=== PATIENT | female | born 1960 | race Caucasian/White ===

== ENCOUNTER → 2017-01-08 | Outpatient (CLI) | payer BC ==
[2015-04-24 03:15] VITALS: BP 156/94
[~2017-01-08] MED LIST: SERT100T PO; TRAZ50TA15 PO
--- NOTE | 2017-01-08 16:30 | CARD ---
APPROVED REPORT EXAM: Two-dimensional and M-mode echocardiogram with Doppler and color Doppler. Other Information Quality : GoodHR: 74bpm Rhythm : NSR INDICATION Cardiomyopathy RISK FACTORS Smoking Previous tobacco use 2D DIMENSIONS RVDd2.3 (2.9-3.5cm)Left Atrium(2D)2.7 (1.6-4.0cm) IVSd1.1 (0.7-1.1cm)Aortic Root(2D)2.8 (2.0-3.7cm) LVDd5.3 (3.9-5.9cm)LVOT Diameter2.4 (1.8-2.4cm) PWd1.2 (0.7-1.1cm)LVDs4.8 (2.5-4.0cm) FS (%) 9.9 %SV29.0 ml Aortic Valve AoV Peak Rolando.106.9cm/sAoV VTI24.7cm AO Peak GR.4.6mmHgLVOT Peak Rolando.82.7cm/s LVOT VTI 16.97cmAO Mean GR.3mmHg NAA (VMAX)3.04mj1BTH (VTI)3.11cm2 Mitral Valve MV E Phxhuahn66.9cm/sMV E Peak Gr.5mmHg MV DECEL [id number] A Gkhwonhz281.3cm/s MV E Mean Gr.2mmHgE/A Ratio0.5 MV A [id number] Pulmonary Valve PV Peak Rnnpjwfn249.4cm/sPV Peak Grad.7mmHg Pulmonary Vein S1 Botfmbtw09.1cm/sD2 Pwhqdgfp41.0cm/s LEFT VENTRICLE The Left Ventricle is borderline dilated. There is mild concentric left ventricular hypertrophy. Left ventricle systolic function is moderately impaired. The Ejection Fraction is 30-35%. There is modera te global hypokinesis of the left ventricle. Transmitral Doppler flow pattern is Grade I-abnormal rel axation pattern. No left ventricle thrombus noted on this study. RIGHT VENTRICLE The right ventricle is normal size. There is normal right ventricular wall thickness. The right ventr icular systolic function is normal. ATRIA The left atrium size is normal. The right atrium size is normal. The interatrial septum is intact wit h no evidence for an atrial septal defect or patent foramen ovale as noted on 2-D or Doppler imaging. AORTIC VALVE The aortic valve is mildly sclerotic. The aortic valve is trileaflet. Doppler and Color Flow revealed no significant aortic regurgitation. There is no significant aortic valvular stenosis. MITRAL VALVE The mitral valve leaflets are mildly thickened. There is no evidence of mitral valve prolapse. There is no mitral valve stenosis. Doppler and Color Flow revealed trace to mild mitral regurgitation. TRICUSPID VALVE Doppler and Color Flow revealed trace tricuspid valve regurgitation. PULMONIC VALVE The pulmonic valve is not well visualized but appears to open well. Doppler and Color Flow revealed n o pulmonic valvular regurgitation. There is no pulmonic valvular stenosis by spectral Doppler. GREAT VESSELS The aortic root is normal in size. The ascending aorta is normal in size. The pulmonary artery is nor mal. The IVC is normal in size and collapses >50% with inspiration. PERICARDIAL EFFUSION There is no evidence of significant pericardial effusion. Critical Notification Critical Value: No <Conclusion> The Left Ventricle is borderline dilated. Left ventricle systolic function is moderately impaired. The Ejection Fraction is 30-35%. There is moderate global hypokinesis of the left ventricle. There is mild concentric left ventricular hypertrophy. There is no significant aortic valvular stenosis. Doppler and Color Flow revealed no significant aortic regurgitation. Doppler and Color Flow revealed trace to mild mitral regurgitation. Doppler and Color Flow revealed trace tricuspid valve regurgitation.
== END | disposition home or self-care (01) ==
LOC: ECHO 12:11
PROVIDERS: ATTEND Internal Medicine Cardiovascular Disease
DX: I51.7 Cardiomegaly (principal); I42.9 Cardiomyopathy, unspecified; Z72.0 Tobacco use
CPT/HCPCS: 93306

== ENCOUNTER → 2017-04-23 | Outpatient (CLI) | payer BC ==
[2015-04-24 03:15] VITALS: BP 156/94
--- NOTE | 2017-04-23 15:38 | CARD ---
APPROVED REPORT EXAM: Two-dimensional and M-mode echocardiogram with Doppler and color Doppler. Other Information Quality : Good INDICATION Cardiomyopathy 2D DIMENSIONS Left Atrium(2D)3.3 (1.6-4.0cm)IVSd1.3 (0.7-1.1cm) Aortic Root(2D)3.0 (2.0-3.7cm)LVDd6.1 (3.9-5.9cm) LVOT Diameter2.2 (1.8-2.4cm)PWd1.2 (0.7-1.1cm) LVDs5.1 (2.5-4.0cm)FS (%) 17.0 % SV66.4 mlLVEF(%)34.9 (>50%) Aortic Valve AoV Peak Rolando.128.0cm/sAoV VTI23.8cm AO Peak GR.6.6mmHgLVOT Peak Rolando.72.5cm/s LVOT VTI 13.28cmAO Mean GR.4mmHg NAA (VMAX)2.70rr0WMI (VTI)2.16cm2 Mitral Valve MV E Ixrrmgvy656.7cm/sMV DECEL [id number] MV A Uevzssmn04.8cm/sE/A Ratio2.2 Tricuspid Valve TR P. Kufcztme591gg/sRAP [id number] TR Peak Gr.92nlNsAPGS12fwIp LEFT VENTRICLE The Left Ventricle is moderately dilated. There is mild concentric left ventricular hypertrophy. Left ventricle systolic function is mildly impaired. The Ejection Fraction is 45% There is global hypokin esis of the left ventricle. The basal to mid inferolateral wall and infero-septum is akinetic. Tissue Doppler imaging reveals abnormal left ventricular diastolic dysfunction. RIGHT VENTRICLE The right ventricle is normal size. The right ventricular systolic function is normal. ATRIA The left atrium size is normal. The right atrium size is normal. The interatrial septum is intact wit h no evidence for an atrial septal defect or patent foramen ovale as noted on 2-D or Doppler imaging. AORTIC VALVE The aortic valve is calcified but opens well. Doppler and Color Flow revealed no significant aortic r egurgitation. There is no significant aortic valvular stenosis. MITRAL VALVE The mitral valve is mildly thickened but opens well. There is no evidence of mitral valve prolapse. T here is no mitral valve stenosis. Doppler and Color Flow revealed no mitral valve regurgitation noted . TRICUSPID VALVE The tricuspid valve is normal in structure and function. Doppler and Color Flow revealed trace tricus pid regurgitation. There is no pulmonary hypertension. The PA pressure was estimated at 20 mmHg. Ther e is no tricuspid valve prolapse or vegetation. There is no tricuspid valve stenosis. PULMONIC VALVE Doppler and Color Flow revealed no pulmonic valvular regurgitation. There is no pulmonic valvular elvie nosis. GREAT VESSELS The aortic root is normal in size. The ascending aorta is normal in size. The IVC is normal in size a nd collapses >50% with inspiration. PERICARDIAL EFFUSION There is no pleural effusion. There is no evidence of significant pericardial effusion. Critical Notification Critical Value: No <Conclusion> Left ventricle systolic function is mildly impaired. The Ejection Fraction is 45% There is global hypokinesis of the left ventricle. The basal to mid inferolateral wall and infero-sep kenzie is akinetic.
== END | disposition home or self-care (01) ==
LOC: ECHO 12:09
PROVIDERS: ATTEND Internal Medicine Cardiovascular Disease
DX: I42.9 Cardiomyopathy, unspecified (principal); I07.1 Rheumatic tricuspid insufficiency; Z87.891 Personal history of nicotine dependence
CPT/HCPCS: 93306

== ENCOUNTER → 2018-07-23 | Outpatient (CLI) | payer BC ==
[2015-04-24 03:15] VITALS: BP 156/94
[~2018-07-23] MED LIST changes: +TRAZ-120 PO; -TRAZ50TA15 PO
[2018-07-23 15:46] LABS: CALCIUM 9.1 mg/dL (8.5-10.1); CREATININE 1.3 mg/dL (0.6-1.0); GFR 41.8; POTASSIUM 4.1 mmol/L (3.5-5.1)
== END | disposition home or self-care (01) ==
LOC: LAB 15:02
PROVIDERS: ATTEND Physician Assistant Medical
DX: I11.0 Hypertensive heart disease with heart failure (principal); I50.22 Chronic systolic (congestive) heart failure; I44.7 Left bundle-branch block, unspecified
CPT/HCPCS: 36415; 80048

== ENCOUNTER → 2019-10-19 | Outpatient (CLI) | payer BC ==
[2015-04-24 03:15] VITALS: BP 156/94
[2019-10-19 17:55] LABS: CALCIUM 9.1 mg/dL (8.5-10.1); CREATININE 1.2 mg/dL (0.6-1.0); GFR 45.7; POTASSIUM 4.3 mmol/L (3.5-5.1)
== END ==
LOC: LAB 15:47
PROVIDERS: ATTEND Internal Medicine Advanced Heart Failure and Transplant Cardiology
DX: I50.22 Chronic systolic (congestive) heart failure (principal)
CPT/HCPCS: 36415; 80048

== ENCOUNTER → 2019-11-27 | Outpatient (CLI) | payer BC ==
[2015-04-24 03:15] VITALS: BP 156/94
[2019-11-27 11:03] LABS: CALCIUM 9.1 mg/dL (8.5-10.1); CREATININE 1.5 mg/dL (0.6-1.0); GFR 35.3; POTASSIUM 4.5 mmol/L (3.5-5.1)
== END | disposition home or self-care (01) ==
LOC: LAB 09:47
PROVIDERS: ATTEND Internal Medicine Advanced Heart Failure and Transplant Cardiology
DX: I50.22 Chronic systolic (congestive) heart failure (principal)
CPT/HCPCS: 36415; 80048

== ENCOUNTER → 2019-12-29 | Outpatient (CLI) | payer BC ==
[2015-04-24 03:15] VITALS: BP 156/94
[2019-12-29 12:12] LABS: CALCIUM 9.1 mg/dL (8.5-10.1); CREATININE 1.5 mg/dL (0.6-1.0); GFR 35.3; POTASSIUM 4.1 mmol/L (3.5-5.1)
== END | disposition home or self-care (01) ==
LOC: LAB 09:52
PROVIDERS: ATTEND Internal Medicine Advanced Heart Failure and Transplant Cardiology
DX: I50.22 Chronic systolic (congestive) heart failure (principal)
CPT/HCPCS: 36415; 80048

== ENCOUNTER → 2020-02-02 | Outpatient (CLI) | payer BC ==
[2015-04-24 03:15] VITALS: BP 156/94
[2020-02-02 12:53] LABS: BASO # 0.1 x10^3/uL (0.0-0.2); BASO % 1 % (0-3); EOS # 0.3 x10^3/uL (0.0-0.7); EOS % 3 % (0-3); HEMATOCRIT 42.4 % (36.0-47.0); HEMOGLOBIN 14.4 g/dL (12.0-15.5); LYMPH # 3.4 x10^3/uL (1.0-4.8); LYMPH % 39 % (24-48); MEAN CORPUSCULAR HEMOGLOBIN 31 pg (25-35); MEAN CORPUSCULAR HGB CONC 34 g/dL (31-37); MEAN CORPUSCULAR VOLUME 92 fL (79-100); MONO # 1.1 x10^3/uL (0.0-1.1); MONO % 13 % (0-9); NEUT # 3.8 x10^3uL (1.8-7.7); NEUT % 44 % (31-73); PLATELET COUNT 204 x10^3/uL (140-400); RED BLOOD COUNT 4.64 x10^6/uL (3.50-5.40); RED CELL DISTRIBUTION WIDTH 13.9 % (11.5-14.5); WHITE BLOOD COUNT 8.6 x10^3/uL (4.0-11.0)
[2020-02-02 13:03] LABS: ALBUMIN/GLOBULIN RATIO 0.9 (1.0-1.7); CALCIUM 8.8 mg/dL (8.5-10.1); CREATININE 1.4 mg/dL (0.6-1.0); GFR 38.2; POTASSIUM 4.4 mmol/L (3.5-5.1); TOTAL BILIRUBIN 0.3 mg/dL (0.2-1.0); TOTAL PROTEIN 8.3 g/dL (6.4-8.2)
== END | disposition home or self-care (01) ==
LOC: LAB 11:13
PROVIDERS: ATTEND Internal Medicine Advanced Heart Failure and Transplant Cardiology
DX: I11.0 Hypertensive heart disease with heart failure (principal); I50.22 Chronic systolic (congestive) heart failure; I44.7 Left bundle-branch block, unspecified; I42.8 Other cardiomyopathies
CPT/HCPCS: 36415; 80053; 85025

== ENCOUNTER → 2020-10-28 | Outpatient (CLI) | payer BC ==
[2015-04-24 03:15] VITALS: BP 156/94
[2020-10-28 10:45] LABS: CALCIUM 9.4 mg/dL (8.5-10.1); CREATININE 1.5 mg/dL (0.6-1.0); GFR 35.2
== END ==
LOC: LAB 09:45
PROVIDERS: ATTEND Internal Medicine Advanced Heart Failure and Transplant Cardiology
DX: I50.22 Chronic systolic (congestive) heart failure (principal); I10 Essential (primary) hypertension
CPT/HCPCS: 36415; 80048; 83880

== ENCOUNTER 2021-01-15 14:10 | Inpatient (IN) | payer BC ==
[~2021-01-15] VITALS: Ht 167.6 cm; Wt 79.0 kg
--- NOTE | 2021-01-15 14:44 | PHYS DOC ---
Past History Past Medical History: Depression (DARBY MCDONALD APRN) Past Surgical History: Cholecystectomy, Pacemaker Additional Past Surgical Histo: carpal tunnel (DARBY MCDONALD APRN) Smoking: Non-smoker Alcohol Use: None Drug Use: None (DARBY MCDONALD APRN) General Adult EDM: Chief Complaint: MULTIPLE COMPLAINTS HPI: HPI: Patient is a 60-year-old female being seen in the ER for multiple complaints such as insomnia, fever/chills, shortness of breath, nonproductive cough, nausea, decreased appetite, loss of taste, diarrhea x1 week. Patient denies any sick exposures. She is not vaccinated for COVID-19. Patient has a history of congestive heart failure and hypertension. Patient is slightly tachycardic with a heart rate of 102. She is afebrile in the ER. (DARBY MCDONALD APRN) Review of Systems: Review of Systems: 14 body systems of the review of systems have been reviewed. See HPI for pertinent positive and negative responses, otherwise all other systems are negative, nonpertinent or noncontributory (DARBY MCDONALD APRN) Allergies: Allergies: Allergies Coded Allergies Type Severity Reaction Last Updated Verified No Known Drug Allergies 01/26/14 No (DARBY MCDONALD APRN) Physical Exam: PE: Constitutional: Well developed, well nourished, no acute distress, non-toxic appearance. [] HENT: Normocephalic, atraumatic, bilateral external ears normal, oropharynx dry, no oral exudates, nose normal. [] Eyes: PERRL, EOMI, conjunctiva normal, no discharge. [] Neck: Normal range of motion, no stridor Cardiovascular:Heart rate regular rhythm, no murmur [] Lungs & Thorax: Bilateral breath sounds clear to auscultation [] Abdomen: Bowel sounds normal, soft, no tenderness, no masses, no pulsatile mason s. [] Skin: Warm, dry, no erythema, no rash. [] Back: Normal range of motion Extremities: No tenderness, no cyanosis, no clubbing, ROM intact, no edema. [] Neurologic: Alert and oriented X 3, normal motor function, normal sensory function, no focal deficits noted. [] Psychologic: Affect normal, judgement normal, mood normal. [] (TAMARA,DARBY L CYBER LEGAL ADVISOR) Current Patient Data: Labs: Laboratory Tests Test 01/15/21 14:45 White Blood Count 6.3 x10^3/uL Red Blood Count 4.48 x10^6/uL Hemoglobin 13.9 g/dL Hematocrit 41.3 % Mean Corpuscular Volume 92 fL Mean Corpuscular Hemoglobin 31 pg Mean Corpuscular Hemoglobin Concent 34 g/dL Red Cell Distribution Width 13.5 % Platelet Count 144 x10^3/uL Neutrophils (%) (Auto) 75 % Lymphocytes (%) (Auto) 15 % Monocytes (%) (Auto) 10 % Eosinophils (%) (Auto) 0 % Basophils (%) (Auto) 0 % Neutrophils # (Auto) 4.7 x10^3uL Lymphocytes # (Auto) 1.0 x10^3/uL Monocytes # (Auto) 0.7 x10^3/uL Eosinophils # (Auto) 0.0 x10^3/uL Basophils # (Auto) 0.0 x10^3/uL Sodium Level 132 mmol/L Potassium Level 4.0 mmol/L Chloride Level 95 mmol/L Carbon Dioxide Level 25 mmol/L Anion Gap 12 Blood Urea Nitrogen 49 mg/dL Creatinine 1.8 mg/dL Estimated GFR (Cockcroft-Gault) 28.5 BUN/Creatinine Ratio 27 Glucose Level 128 mg/dL Calcium Level 7.7 mg/dL Total Bilirubin 0.5 mg/dL Aspartate Amino Transf (AST/SGOT) 48 U/L Alanine Aminotransferase (ALT/SGPT) 27 U/L Alkaline Phosphatase 53 U/L Troponin I Quantitative 0.272 ng/mL Total Protein 7.1 g/dL Albumin 3.3 g/dL Albumin/Globulin Ratio 0.9 SARS-CoV-2 Antigen (Rapid) Positive Current Medications Medications (Trade) Dose Ordered Sig/Mac Route PRN Reason Start Time Stop Time Status Last Admin Dose Admin Ceftriaxone Sodium 1 gm/ Sodium Chloride 50 ml @ 100 mls/hr 1X ONCE IV 01/15/21 16:00 01/15/21 16:29 UNV Azithromycin 500 mg/Sodium Chloride 250 ml @ 250 mls/hr 1X ONCE IV 01/15/21 16:00 01/15/21 16:59 UNV Dexamethasone Sodium Phosphate (Decadron) 10 mg 1X ONCE IVP 01/15/21 16:00 01/15/21 16:01 UNV Vital Signs: Vital Signs Date Time Temp Pulse Resp B/P (MAP) Pulse Ox O2 Delivery O2 Flow Rate FiO2 01/15/21 14:15 98.8 103 22 108/62 97 Room Air (DARBY MCDONALD APRN) EKG: EKG: KG EKG performed at 1544 by ER staff shows sinus rhythm, no STEMI read by Dr. Nolan at 1550. [] (DARBY MCDONALD APRN) Radiology/Procedures: Radiology/Procedures: PROCEDURE: PORTABLE CHEST 1V AP chest. HISTORY: Cough, short of air AP view was taken of the chest. The heart is enlarged. There is a left pacemaker with 3 pacing leads. There is haziness in the lung mathews from infiltrates or pulmonary edema. There is no definite effusion. IMPRESSION: 1. Cardiomegaly. 2. Pacemaker on the left. 3. Hazy infiltrates or pulmonary edema. Electronically signed by: Rinku Feng MD (01/15/2021 3:10 PM) [id number] DICTATED AND SIGNED BY: RINKU FENG MD DATE: 01/15/21 1509 CC: DARBY MCDONALD APRN; NILSA BUCHANAN ~MTH0 0 [] (DARBY MCDONALD APRN) Heart Score: C/O Chest Pain: No Risk Factors: Risk Factors: DM, Current or recent (<one month) smoker, HTN, HLP, family history of CAD, obesity. Risk Scores: Score 0 - 3: 2.5% MACE over next 6 weeks - Discharge Home Score 4 - 6: 20.3% MACE over next 6 weeks - Admit for Clinical Observation Score 7 - 10: 72.7% MACE over next 6 weeks - Early Invasive Strategies (DARBY MCDONALD APRN) Course & Med Decision Making: Course & Med Decision Making Pertinent Labs and Imaging studies reviewed. (See chart for details) Patient is a 60-year-old female being seen in the ER for multiple complaints that are consistent with a COVID-19 viral illness such as insomnia, fever/chills, shortness of breath, cough, loss of taste, nausea, diarrhea. Work-up in the ER consisted of urinalysis, blood work, chest x-ray. Patient is tested for COVID-19 in the ER. She will be notified of her results may become available in approximately 2 days. Rapid Covid is positive. Patient has elevated BUN and creatinine. Her troponin was elevated at 0.272. Hyponatremia and hypocalcemia noted. Chest x-ray shows hazy infiltrates. Patient treated with steroid, fluids, antibiotics. I discussed patient's case with Dr. Andino who agreed to admit patient under his services. Serial troponins ordered. Care transferred 1557. Spoke with Dr. Vila with [facility] cardiology group and he advised ordering serial troponins. (DARBY MCDONALD APRN) Course & Med Decision Making I was the Attending physician on the above date of service of this patient. This patient was evaluated, examined, treated, and dispositioned from the emergency department by the mid-level practitioner. I personally saw the patient and repeated certain aspects of history and physical exam. COVID-19 infection in unvaccinated individual with endorgan damage requiring hospital admission Critical Care Time This patient required critical care. Due to the fact that the patient required a significant amount of one on one physician - patient contact time, ordering and review of studies, arranging urgent treatment with development of a management plan, evaluation of patients response to treatment with frequent reassessments, and discussions with other providers this patient required 40 minutes of critical care time. Critical care time was indicated due to the inherent instability and/or potential for instability in this patient. The critical care time that is allocated to this patient is above and beyond any time spent on any other billable procedures performed on this patient. Electronically signed, Lola Shirley DO (LOLA SHIRLEY DO) Edie Disclaimer: Edie Disclaimer: This electronic medical record was generated, in whole or in part, using a voice recognition dictation system. (DARBY MCDONALD APRN) Departure Departure: Impression: Primary Impression: Pneumonia Qualified Codes: J18.9 - Pneumonia, unspecified organism Additional Impressions: COVID-19 NSTEMI (non-ST elevated myocardial infarction) Disposition: ADMITTED INPATIENT Admitting Physician: Bc Ho (DARBY MCDONALD APRN) Condition: STABLE Referrals: NILSA BUCHANAN (PCP) DARBY MCDONALD APRN Jan 15, 2021 14:44 LOLA SHIRLEY DO Jan 17, 2021 12:57
--- NOTE | 2021-01-15 15:12 | RAD ---
AP chest. HISTORY: Cough, short of air AP view was taken of the chest. The heart is enlarged. There is a left pacemaker with 3 pacing leads. There is haziness in the lung mathews from infiltrates or pulmonary edema. There is no definite effus ion. IMPRESSION: 1. Cardiomegaly. 2. Pacemaker on the left. 3. Hazy infiltrates or pulmonary edema. Electronically signed by: Rinku Feng MD (01/15/2021 3:10 PM) [id number]
[2021-01-15 15:22] LABS: CALCIUM 7.7 mg/dL (8.5-10.1); CREATININE 1.8 mg/dL (0.6-1.0); GFR 28.5
[2021-01-15 15:25] LABS: BASO % 0 % (0-3); EOS % 0 % (0-3); HEMATOCRIT 41.3 % (36.0-47.0); HEMOGLOBIN 13.9 g/dL (12.0-15.5); LYMPH % 15 % (24-48); MEAN CORPUSCULAR HEMOGLOBIN 31 pg (25-35); MEAN CORPUSCULAR HGB CONC 34 g/dL (31-37); MEAN CORPUSCULAR VOLUME 92 fL (79-100); MONO # 0.7 x10^3/uL (0.0-1.1); MONO % 10 % (0-9); NEUT # 4.7 x10^3uL (1.8-7.7); NEUT % 75 % (31-73); PLATELET COUNT 144 x10^3/uL (140-400); RED BLOOD COUNT 4.48 x10^6/uL (3.50-5.40); RED CELL DISTRIBUTION WIDTH 13.5 % (11.5-14.5); WHITE BLOOD COUNT 6.3 x10^3/uL (4.0-11.0)
[2021-01-15 15:27] LABS: ALBUMIN 3.3 g/dL (3.4-5.0); ALBUMIN/GLOBULIN RATIO 0.9 (1.0-1.7); TOTAL BILIRUBIN 0.5 mg/dL (0.2-1.0); TOTAL PROTEIN 7.1 g/dL (6.4-8.2)
[2021-01-15] MEDS ORDERED: DEXAMETHASONE SOD PHOS 10 MG/ML VIAL. IVP ONE (16:00)
[2021-01-15] MEDS ORDERED: AZITHROMYCIN 500 MG in IV NORMAL SALINE 250ML 250 ML IV ONE (16:00)
[2021-01-15] MEDS ORDERED: cefTRIAXone SODIUM 1 GM VIAL ONE (16:12)
[2021-01-15] MEDS ORDERED: AZITHROMYCIN 500 MG VIAL. IV ONE (16:12)
[2021-01-15] MEDS ORDERED: IV NORMAL SALINE 250ML 250 ML ONE (16:13)
[2021-01-15] MEDS ORDERED: IV NORMAL SALINE 50ML 50 ML ONE (16:13)
--- NOTE | 2021-01-15 18:00 | EKG ---
[address] [address] Test Date: 2021-01-15 Test Time: 15:44:45 Pat Name: ZEE PITTMAN Department: Room: Gender: F [employer]er: : 1960 Requested By: DARBY MCDONALD Order Number: [id number] Reading MD: Measurements Intervals [place] Rate: 96 P: 46 RI: 144 QRS: 0 QRSD: 156 T: 91 QT: 404 QTc: 518 Interpretive Statements SINUS RHYTHM COMPLEX(ES) WITH ABERRANT INTRAVENTRICULAR CONDUCTION LEFT ATRIAL ABNORMALITY CONSIDER WPW, TYPE B LEFTWARD AXIS T ABNORMALITY IN ANTEROLATERAL LEADS ABNORMAL ECG RI6.02 No previous ECG available for comparison
[2021-01-15] MEDS ORDERED: DULO30CA2 PO (18:18)
[2021-01-15] MEDS ORDERED: FURO-68 PO (18:18)
[2021-01-15] MEDS ORDERED: METO-239 PO (18:18)
[2021-01-15] MEDS ORDERED: IV NORMAL SALINE 500ML 500 ML IV ONE (18:30)
--- NOTE | 2021-01-15 18:51 | HP ---
HISTORY OF PRESENT ILLNESS: The patient is a 60-year-old female patient who came to the Emergency Room with multiple complaints including fever, chills, shortness of breath, nonproductive cough, nausea, anorexia, loss of taste, diarrhea for 1 week. She denies any sick exposure. She is not vaccinated for COVID-19. Has a history of congestive heart failure and hypertension. She was afebrile on presentation. She was extensively investigated and apparently was found to be positive for coronavirus. Her CBC was unremarkable and her chemistry showed has mild hyponatremia, impaired kidney function, creatinine 1.8 and troponin was elevated at 0.272 and was admitted with COVID-19 infection, probably acute kidney injury and elevated troponin. Other medical problems include congestive heart failure and hypertension. She was treated with IV ceftriaxone as well as azithromycin and dexamethasone. We will also trend her cardiac enzymes. I have consulted the muffle operator. We will continue all her home medication. PAST MEDICAL HISTORY: Significant for congestive heart failure, probably chronic diastolic, hypertension. PAST SURGICAL HISTORY: Significant for cholecystectomy and left-sided carpal tunnel release. ALLERGIES: Has no known drug allergies. MEDICATIONS: She is currently on losartan, metoprolol and spironolactone. She is also on sertraline and trazodone for depression. FAMILY HISTORY: She has two sisters, 1 older and 1 younger and 1 brother younger, all healthy. Her father in an accident and was electrocuted when he was 42 years. Her mother is . She does not know her age or the cause of her . SOCIAL HISTORY: She is single, has one daughter. She lost her son who is 42 years old for drug overdose. She quit smoking years ago. Does not drink alcohol or recreational drugs. She retired from working with the [employer] agency. REVIEW OF SYSTEMS: As per history of present illness. PHYSICAL EXAMINATION: GENERAL: When I examined her, she was resting flat in bed, in no apparent respiratory distress. No pallor, jaundice, cyanosis or thyromegaly. No jugular venous distention. No limb edema. VITAL SIGNS: Her heart rate was 103, blood pressure is 108/62, temperature was 98.8, respiratory rate 22, and oxygen saturation was 97% on room air. HEAD, EYES, EARS, NOSE, EYES, EARS, NOSE, AND THROAT: Normocephalic, atraumatic. NECK: Supple. HEART: Showed normal first and second heart sounds, no gallop or murmur. CHEST: Clear to auscultation, no crepitation or rhonchi. ABDOMEN: Distended, soft, nontender. NEUROLOGIC: She was grossly intact. LABORATORY DATA: Lab work drawn this morning showed her serum sodium 132, potassium 4, chloride 95, bicarbonate 25, anion gap of 12, BUN 49, creatinine 1.8. Estimated GFR was 28 mL per minute. Her glucose 128, calcium was 7.7. Total bilirubin, AST, ALT, alkaline phosphatase were normal. Total protein 7.1, albumin was 3.3. First set of troponin was 0.272. Her white cell count was 6300, hemoglobin 14, hematocrit 41, MCV 92 and platelet count of 144,000 with normal manual differential. Her chest x-ray showed the patient has cardiomegaly, pacemaker in the left and has infiltrate or pulmonary edema. ASSESSMENT AND PLAN: In summary, this is a 60-year-old female patient will be admitted with COVID-19 infection. She is known to have congestive heart failure. Troponin is elevated. She has also probably acute on chronic kidney injury as well as hypertension, although her blood pressure is borderline, my plan is to continue with IV antibiotic for possible coronavirus pneumonia versus community-acquired pneumonia. Started with Lovenox. She is on losartan, metoprolol and spironolactone. However, her blood pressure is borderline, probably we will start her on IV fluid as a bolus of normal saline 500 mL and continuously at 100 mL per hour. We will do 2 more sets of cardiac enzymes, check her fasting lipid profile. We will start her also on Lovenox. TAMEKA/ISAAK SCHULTZ: TAMEKA/clara TID: [id number]
[2021-01-15] MEDS ORDERED: IV NORMAL SALINE 1,000ML 1,000 ML IV ONE (19:15)
[2021-01-15 19:24] LABS: BACTERIA,URINE FEW /HPF (0-FEW); BILIRUBIN,URINE NEG (NEG); CLARITY,URINE HAZY; COLOR,URINE AMBER; GLUCOSE,URINE NEG (NEG); NITRITE,URINE NEG (NEG); UROBILINOGEN,URINE 0.2 mg/dL (0.2 mg/dL)
[2021-01-15 19:25] LABS: GRANULAR CASTS,URINE OCC /HPF; HYALINE CASTS, URINE FEW /HPF; SQUAMOUS EPITHELIAL CELL,UR MOD /LPF
[2021-01-15] MEDS: ENOXAPARIN 40 MG/0.4 ML SYRINGE. SQ SCH (19:26)
[2021-01-15 21:26] VITALS: BP 104/66
[2021-01-15 23:20] VITALS: BP 109/56
[2021-01-16] VITALS (36 sets, daily range): BP systolic 71–115; BP diastolic 31–90
[2021-01-16 05:58] LABS: BASO % 0 % (0-3); EOS % 0 % (0-3); HEMATOCRIT 41.6 % (36.0-47.0); HEMOGLOBIN 13.9 g/dL (12.0-15.5); LYMPH # 0.9 x10^3/uL (1.0-4.8); LYMPH % 13 % (24-48); MEAN CORPUSCULAR HEMOGLOBIN 31 pg (25-35); MEAN CORPUSCULAR HGB CONC 33 g/dL (31-37); MEAN CORPUSCULAR VOLUME 94 fL (79-100); MONO # 0.4 x10^3/uL (0.0-1.1); MONO % 7 % (0-9); NEUT # 5.3 x10^3uL (1.8-7.7); NEUT % 80 % (31-73); PLATELET COUNT 134 x10^3/uL (140-400); RED BLOOD COUNT 4.43 x10^6/uL (3.50-5.40); RED CELL DISTRIBUTION WIDTH 13.7 % (11.5-14.5); WHITE BLOOD COUNT 6.6 x10^3/uL (4.0-11.0)
[2021-01-16 06:11] LABS: ALBUMIN 2.8 g/dL (3.4-5.0); ALBUMIN/GLOBULIN RATIO 0.7 (1.0-1.7); CREATININE 1.3 mg/dL (0.6-1.0); GFR 41.5; POTASSIUM 3.7 mmol/L (3.5-5.1); TOTAL BILIRUBIN 0.4 mg/dL (0.2-1.0); TOTAL PROTEIN 7.1 g/dL (6.4-8.2)
[2021-01-16] MEDS: METOPROLOL SUCC 24HR ER 25 MG TAB.ER.24H. PO SCH (08:56)
[2021-01-16] MEDS: FUROSEMIDE 40 MG TABLET PO SCH (08:57)
[2021-01-16] MEDS: DULoxetine HCL 30 MG CAPSULE.DR PO SCH (09:29)
[2021-01-16] MEDS ORDERED: IV NORMAL SALINE 1,000ML 500 ML IV ONE (10:00)
[2021-01-16] MEDS ORDERED: IV NORMAL SALINE 50ML 50 ML ONE (16:20)
[2021-01-16] MEDS ORDERED: cefTRIAXone SODIUM 1 GM VIAL ONE (16:20)
[2021-01-16] MEDS: AZITHROMYCIN 250 MG TABLET. PO SCH (16:28)
--- NOTE | 2021-01-16 16:43 | PDOC2 ---
CONSULT DOS: DATE: 01/16/21 TIME: 16:43 Reason for Consult: Cardiomyopathy Referring Physician: Dr. Ho Chief Complaint Shortness of breath Source: Chart review, Patient Problem List Problems Medical Problems: (1) COVID-19 Status: Acute (2) NSTEMI (non-ST elevated myocardial infarction) Status: Acute (3) Pneumonia Status: Acute History of Present Illness 60-year-old female with history of severe nonischemic cardiomyopathy with LVEF 10 to 15%, usually followed at heart failure clinic at [facility] presented complaining of fever, chills, shortness of breath, cough, loss of taste, nausea and diarrhea since last 1 week. She was diagnosed with Covid infection and admitted for further management. Of note, patient is unvaccinated. She denied any chest pain, palpitations or syncope. Past Medical History Chronic systolic heart failure Severe nonischemic cardiomyopathy Hypertension Past Surgical History Biventricular ICD/FARE REGISTER REPAIRER-D implantation Cholecystectomy Carpal tunnel release surgery Family History Hypertension Social History Patient quit smoking several years ago and denied any alcohol or drug abuse Current Medications Current Medications Ceftriaxone Sodium 1 gm/ Sodium Chloride 50 ml @ 100 mls/hr 1X ONCE IV Last administered on 01/15/21at 16:23; Start 01/15/21 at 16:00; Stop 01/15/21 at 16:29; Status DC Azithromycin 500 mg/Sodium Chloride 250 ml @ 250 mls/hr 1X ONCE IV Last administered on 01/15/21at 16:29; Start 01/15/21 at 16:00; Stop 01/15/21 at 16: 59; Status DC Dexamethasone Sodium Phosphate (Decadron) 10 mg 1X ONCE IVP Last administered on 01/15/21at 16:19; Start 01/15/21 at 16:00; Stop 01/15/21 at 16:22; Status DC Azithromycin (Zithromax) 500 mg STK-MED ONCE IV ; Start 01/15/21 at 16:12; Stop 01/15/21 at 16:12; Status DC Ceftriaxone Sodium (Rocephin) 1 gm STK-MED ONCE .ROUTE ; Start 01/15/21 at 16:12; Stop 01/15/21 at 16:12; Status DC Sodium Chloride 250 ml @ As Directed STK-MED ONCE .ROUTE ; Start 01/15/21 at 16:13; Stop 01/15/21 at 16:13; Status DC Sodium Chloride 50 ml @ As Directed STK-MED ONCE .ROUTE ; Start 01/15/21 at 16:13; Stop 01/15/21 at 16:13; Status DC Ceftriaxone Sodium 1 gm/ Sodium Chloride 50 ml @ 100 mls/hr Q24H IV Last administered on 01/16/21at 16:29; Start 01/16/21 at 16:00 Azithromycin (Zithromax) 250 mg Q24H PO Last administered on 01/16/21at 16:28; Start 01/16/21 at 16:00 Enoxaparin Sodium (Lovenox 40mg Syringe) 40 mg Q24H SQ Last administered on 01/15/21at 19:26; Start 01/15/21 at 19:00 Duloxetine HCl (Cymbalta) 90 mg DAILY PO Last administered on 01/16/21at 09:29; Start 01/16/21 at 09:00 Furosemide (Lasix) 40 mg DAILY PO Last administered on 01/16/21at 08:57; Start 01/16/21 at 09:00 Metoprolol Succinate (Toprol Xl) 25 mg DAILY PO Last administered on 01/16/21at 08:56; Start 01/16/21 at 09:00 Sodium Chloride 500 ml @ 0 mls/hr 1X ONCE IV Last administered on 01/15/21at 18:55; Start 01/15/21 at 18:30; Stop 01/15/21 at 18:31; Status DC Sodium Chloride 1,000 ml @ 1,000 mls/hr 1X ONCE IV Last administered on 01/15/21at 16:00; Start 01/15/21 at 19:15; Stop 01/15/21 at 20:14; Status DC Sodium Chloride 500 ml @ 500 mls/hr 1X ONCE IV Last administered on 01/16/21at 09:59; Start 01/16/21 at 10:00; Stop 01/16/21 at 10:59; Status DC Dobutamine HCl/ Dextrose 250 ml @ 4.5 mls/hr 1X ONCE IV Last administered on 01/16/21at 10:57; Start 01/16/21 at 10:30; Stop 01/18/21 at 18:03 Sodium Chloride 50 ml @ As Directed STK-MED ONCE .ROUTE ; Start 01/16/21 at 16:20; Stop 01/16/21 at 16:20; Status DC Ceftriaxone Sodium (Rocephin) 1 gm STK-MED ONCE .ROUTE ; Start 01/16/21 at 16:20; Stop 01/16/21 at 16:20; Status DC Active Scripts Active Reported Cymbalta (Duloxetine Hcl) 30 Mg Capsule.dr 90 Mg PO DAILY Metoprolol Succinate ( Xl ) (Metoprolol Succinate) 25 Mg Tab.er.24h 25 Mg PO DAILY Lasix (Furosemide) 40 Mg Tablet 40 Mg PO DAILY Allergies: Coded Allergies: No Known Drug Allergies (Unverified , 01/16/21) General: YES: Chills, Fatigue, Malaise PSYCHOLOGICAL ROS: No: Hallucinations Eyes: No: Loss of vision HEENT: No: Epistaxis Respiratory: YES: Cough, Shortness of breath Cardiovascular: No: Chest Pain Gastrointestinal: YES: Nausea, Diarrhea Genitourinary: No: Henaturia Neurological: No: Seizures Skin: No: Rash General: Alert, mild distress HEENT: Atraumatic Lungs: Other (Bilateral scattered crepitations) Heart: Regular rate Abdomen: Soft Extremities: No edema Neuro: Normal speech Psych/Mental Status: Mood NL VITALS Vital Signs Date Time Temp Pulse Resp B/P (MAP) Pulse Ox O2 Delivery O2 Flow Rate FiO2 01/16/21 16:33 110 20 115/55 (75) 96 Nasal Cannula 2.0 01/16/21 07:54 97.8 Labs Laboratory Tests Test 01/15/21 14:45 01/15/21 18:50 01/15/21 19:22 01/15/21 23:30 White Blood Count 6.3 x10^3/uL (4.0-11.0) Red Blood Count 4.48 x10^6/uL (3.50-5.40) Hemoglobin 13.9 g/dL (12.0-15.5) Hematocrit 41.3 % (36.0-47.0) Mean Corpuscular Volume 92 fL (79-100) Mean Corpuscular Hemoglobin 31 pg (25-35) Mean Corpuscular Hemoglobin Concent 34 g/dL (31-37) Red Cell Distribution Width 13.5 % (11.5-14.5) Platelet Count 144 x10^3/uL (140-400) Neutrophils (%) (Auto) 75 % (31-73) Lymphocytes (%) (Auto) 15 % (24-48) Monocytes (%) (Auto) 10 % (0-9) Eosinophils (%) (Auto) 0 % (0-3) Basophils (%) (Auto) 0 % (0-3) Neutrophils # (Auto) 4.7 x10^3uL (1.8-7.7) Lymphocytes # (Auto) 1.0 x10^3/uL (1.0-4.8) Monocytes # (Auto) 0.7 x10^3/uL (0.0-1.1) Eosinophils # (Auto) 0.0 x10^3/uL (0.0-0.7) Basophils # (Auto) 0.0 x10^3/uL (0.0-0.2) Sodium Level 132 mmol/L (136-145) Potassium Level 4.0 mmol/L (3.5-5.1) Chloride Level 95 mmol/L (98-107) Carbon Dioxide Level 25 mmol/L (21-32) Anion Gap 12 (6-14) Blood Urea Nitrogen 49 mg/dL (7-20) Creatinine 1.8 mg/dL (0.6-1.0) Estimated GFR (Cockcroft-Gault) 28.5 BUN/Creatinine Ratio 27 (6-20) Glucose Level 128 mg/dL (70-99) Calcium Level 7.7 mg/dL (8.5-10.1) Total Bilirubin 0.5 mg/dL (0.2-1.0) Aspartate Amino Transf (AST/SGOT) 48 U/L (15-37) Alanine Aminotransferase (ALT/SGPT) 27 U/L (14-59) Alkaline Phosphatase 53 U/L (46-116) Troponin I Quantitative 0.272 ng/mL (0-0.055) 0.274 ng/mL (0-0.055) 0.220 ng/mL (0-0.055) YP-Lgi-F-Type Natriuretic Peptide 94819 pg/mL (0-124) Total Protein 7.1 g/dL (6.4-8.2) Albumin 3.3 g/dL (3.4-5.0) Albumin/Globulin Ratio 0.9 (1.0-1.7) SARS-CoV-2 Antigen (Rapid) Positive (NEGATIVE) Urine Collection Type Void Urine Color Janina Urine Clarity Hazy Urine pH 5.0 Urine Specific [place] 1.020 Urine Protein 100 mg/dl (NEG-TRACE) Urine Glucose (UA) Neg mg/dL (NEG) Urine Ketones (Stick) Neg mg/dL (NEG) Urine Blood Trace (NEG) Urine Nitrite Neg (NEG) Urine Bilirubin Neg (NEG) Urine Urobilinogen Dipstick 0.2 mg/dL (0.2 mg/dL) Urine Leukocyte Esterase Small (NEG) Urine RBC 1-2 /HPF (0-2) Urine WBC 5-10 /HPF (0-4) Urine Squamous Epithelial Cells Mod /LPF Urine Bacteria Few /HPF (0-FEW) Urine Hyaline Casts Few /HPF Urine Granular Casts Occ /HPF Urine Mucus Slight /LPF Test 01/16/21 05:38 White Blood Count 6.6 x10^3/uL (4.0-11.0) Red Blood Count 4.43 x10^6/uL (3.50-5.40) Hemoglobin 13.9 g/dL (12.0-15.5) Hematocrit 41.6 % (36.0-47.0) Mean Corpuscular Volume 94 fL (79-100) Mean Corpuscular Hemoglobin 31 pg (25-35) Mean Corpuscular Hemoglobin Concent 33 g/dL (31-37) Red Cell Distribution Width 13.7 % (11.5-14.5) Platelet Count 134 x10^3/uL (140-400) Neutrophils (%) (Auto) 80 % (31-73) Lymphocytes (%) (Auto) 13 % (24-48) Monocytes (%) (Auto) 7 % (0-9) Eosinophils (%) (Auto) 0 % (0-3) Basophils (%) (Auto) 0 % (0-3) Neutrophils # (Auto) 5.3 x10^3uL (1.8-7.7) Lymphocytes # (Auto) 0.9 x10^3/uL (1.0-4.8) Monocytes # (Auto) 0.4 x10^3/uL (0.0-1.1) Eosinophils # (Auto) 0.0 x10^3/uL (0.0-0.7) Basophils # (Auto) 0.0 x10^3/uL (0.0-0.2) Sodium Level 134 mmol/L (136-145) Potassium Level 3.7 mmol/L (3.5-5.1) Chloride Level 102 mmol/L (98-107) Carbon Dioxide Level 22 mmol/L (21-32) Anion Gap 10 (6-14) Blood Urea Nitrogen 43 mg/dL (7-20) Creatinine 1.3 mg/dL (0.6-1.0) Estimated GFR (Cockcroft-Gault) 41.5 BUN/Creatinine Ratio 33 (6-20) Glucose Level 128 mg/dL (70-99) Calcium Level 8.0 mg/dL (8.5-10.1) Total Bilirubin 0.4 mg/dL (0.2-1.0) Aspartate Amino Transf (AST/SGOT) 45 U/L (15-37) Alanine Aminotransferase (ALT/SGPT) 21 U/L (14-59) Alkaline Phosphatase 50 U/L (46-116) Total Protein 7.1 g/dL (6.4-8.2) Albumin 2.8 g/dL (3.4-5.0) Albumin/Globulin Ratio 0.7 (1.0-1.7) Assessment/Plan 1. Acute respiratory failure secondary to Covid pneumonia: Continue treatment per primary team 2. Chronic systolic heart failure, clinically well compensated. Elevated BNP levels probably secondary to Covid pneumonia. Recent 2D echocardiogram showed LVEF 10 to 15%. Patient started on intravenous dobutamine infusion since she remained hypotensive with acute kidney injury/prerenal picture that did not improve despite intravenous hydration. We will continue to monitor closely for any fluid overload. 3. Severe nonischemic cardiomyopathy s/p biventricular ICD/FARE REGISTER REPAIRER-D implantation. Cardiac catheterization in the recent past did not show any significant coronary artery disease. 4. Slight troponin elevation most probably demand ischemia. Patient is c urrently chest pain and recent cardiac catheterization did not show any CAD as stated above. 5. Acute on chronic renal insufficiency: Continue intravenous hydration with close monitoring for fluid overload Thank you for your consultation JOSEPH INIGUEZ MD Jan 16, 2021 16:43
[2021-01-16] MEDS: ENOXAPARIN 40 MG/0.4 ML SYRINGE. SQ SCH (19:00)
[2021-01-16] MEDS ORDERED: DEXAMETHASONE SOD PHOS 10 MG/ML VIAL. IV ONE (20:15)
[2021-01-16] MEDS ORDERED: ONDANSETRON PF 4 MG/2 ML VIAL. IVP PRN (20:15)
[2021-01-16] MEDS ORDERED: REMDESIVIR LOAD in IV NORMAL SALINE 250ML TV IV ONE (22:00)
[2021-01-17] VITALS (26 sets, daily range): BP systolic 90–122; BP diastolic 47–68
[2021-01-17] MEDS ORDERED: QUET50TA5 PO (06:35)
--- NOTE | 2021-01-17 08:24 | PDOC ---
ARIN KUMAR MONIQUE 01/17/21 0824: CARDIO Progress Notes Date & Time Date of Service DATE: 01/17/21 TIME: 08:18 Time of Evaluation 08:18 Subjective Notes No shortness of breath at rest. Reports fatigue and SAENZ. No chest pain or LE edema. Vitals Vitals Vital Signs Date Time Temp Pulse Resp B/P (MAP) Pulse Ox O2 Delivery O2 Flow Rate FiO2 01/17/21 07:24 108 97/51 (66) Nasal Cannula 2.0 01/17/21 04:09 16 94 01/16/21 19:49 97.2 Weight Weight [ ] Input and Output I.O. Intake and Output 01/17/21 07:00 Intake Total 550 ml Balance 550 ml IV Total 550 ml Laboratory Labs Laboratory Tests Test 01/15/21 14:45 01/15/21 18:50 01/15/21 19:22 01/15/21 23:30 White Blood Count 6.3 x10^3/uL (4.0-11.0) Red Blood Count 4.48 x10^6/uL (3.50-5.40) Hemoglobin 13.9 g/dL (12.0-15.5) Hematocrit 41.3 % (36.0-47.0) Mean Corpuscular Volume 92 fL (79-100) Mean Corpuscular Hemoglobin 31 pg (25-35) Mean Corpuscular Hemoglobin Concent 34 g/dL (31-37) Red Cell Distribution Width 13.5 % (11.5-14.5) Platelet Count 144 x10^3/uL (140-400) Neutrophils (%) (Auto) 75 % (31-73) Lymphocytes (%) (Auto) 15 % (24-48) Monocytes (%) (Auto) 10 % (0-9) Eosinophils (%) (Auto) 0 % (0-3) Basophils (%) (Auto) 0 % (0-3) Neutrophils # (Auto) 4.7 x10^3uL (1.8-7.7) Lymphocytes # (Auto) 1.0 x10^3/uL (1.0-4.8) Monocytes # (Auto) 0.7 x10^3/uL (0.0-1.1) Eosinophils # (Auto) 0.0 x10^3/uL (0.0-0.7) Basophils # (Auto) 0.0 x10^3/uL (0.0-0.2) Sodium Level 132 mmol/L (136-145) Potassium Level 4.0 mmol/L (3.5-5.1) Chloride Level 95 mmol/L (98-107) Carbon Dioxide Level 25 mmol/L (21-32) Anion Gap 12 (6-14) Blood Urea Nitrogen 49 mg/dL (7-20) Creatinine 1.8 mg/dL (0.6-1.0) Estimated GFR (Cockcroft-Gault) 28.5 BUN/Creatinine Ratio 27 (6-20) Glucose Level 128 mg/dL (70-99) Calcium Level 7.7 mg/dL (8.5-10.1) Total Bilirubin 0.5 mg/dL (0.2-1.0) Aspartate Amino Transf (AST/SGOT) 48 U/L (15-37) Alanine Aminotransferase (ALT/SGPT) 27 U/L (14-59) Alkaline Phosphatase 53 U/L (46-116) Troponin I Quantitative 0.272 ng/mL (0-0.055) 0.274 ng/mL (0-0.055) 0.220 ng/mL (0-0.055) DB-Ite-J-Type Natriuretic Peptide 29732 pg/mL (0-124) Total Protein 7.1 g/dL (6.4-8.2) Albumin 3.3 g/dL (3.4-5.0) Albumin/Globulin Ratio 0.9 (1.0-1.7) SARS-CoV-2 Antigen (Rapid) Positive (NEGATIVE) Urine Collection Type Void Urine Color Janina Urine Clarity Hazy Urine pH 5.0 Urine Specific [place] 1.020 Urine Protein 100 mg/dl (NEG-TRACE) Urine Glucose (UA) Neg mg/dL (NEG) Urine Ketones (Stick) Neg mg/dL (NEG) Urine Blood Trace (NEG) Urine Nitrite Neg (NEG) Urine Bilirubin Neg (NEG) Urine Urobilinogen Dipstick 0.2 mg/dL (0.2 mg/dL) Urine Leukocyte Esterase Small (NEG) Urine RBC 1-2 /HPF (0-2) Urine WBC 5-10 /HPF (0-4) Urine Squamous Epithelial Cells Mod /LPF Urine Bacteria Few /HPF (0-FEW) Urine Hyaline Casts Few /HPF Urine Granular Casts Occ /HPF Urine Mucus Slight /LPF Test 01/16/21 05:38 White Blood Count 6.6 x10^3/uL (4.0-11.0) Red Blood Count 4.43 x10^6/uL (3.50-5.40) Hemoglobin 13.9 g/dL (12.0-15.5) Hematocrit 41.6 % (36.0-47.0) Mean Corpuscular Volume 94 fL (79-100) Mean Corpuscular Hemoglobin 31 pg (25-35) Mean Corpuscular Hemoglobin Concent 33 g/dL (31-37) Red Cell Distribution Width 13.7 % (11.5-14.5) Platelet Count 134 x10^3/uL (140-400) Neutrophils (%) (Auto) 80 % (31-73) Lymphocytes (%) (Auto) 13 % (24-48) Monocytes (%) (Auto) 7 % (0-9) Eosinophils (%) (Auto) 0 % (0-3) Basophils (%) (Auto) 0 % (0-3) Neutrophils # (Auto) 5.3 x10^3uL (1.8-7.7) Lymphocytes # (Auto) 0.9 x10^3/uL (1.0-4.8) Monocytes # (Auto) 0.4 x10^3/uL (0.0-1.1) Eosinophils # (Auto) 0.0 x10^3/uL (0.0-0.7) Basophils # (Auto) 0.0 x10^3/uL (0.0-0.2) Sodium Level 134 mmol/L (136-145) Potassium Level 3.7 mmol/L (3.5-5.1) Chloride Level 102 mmol/L (98-107) Carbon Dioxide Level 22 mmol/L (21-32) Anion Gap 10 (6-14) Blood Urea Nitrogen 43 mg/dL (7-20) Creatinine 1.3 mg/dL (0.6-1.0) Estimated GFR (Cockcroft-Gault) 41.5 BUN/Creatinine Ratio 33 (6-20) Glucose Level 128 mg/dL (70-99) Calcium Level 8.0 mg/dL (8.5-10.1) Total Bilirubin 0.4 mg/dL (0.2-1.0) Aspartate Amino Transf (AST/SGOT) 45 U/L (15-37) Alanine Aminotransferase (ALT/SGPT) 21 U/L (14-59) Alkaline Phosphatase 50 U/L (46-116) Total Protein 7.1 g/dL (6.4-8.2) Albumin 2.8 g/dL (3.4-5.0) Albumin/Globulin Ratio 0.7 (1.0-1.7) Physical Exams HEENT: Neck Supple W Full Motion Chest: Symmetric Lungs: Other (on NC) Heart: RRR (v-paced underlying SR ) Abdomen: Soft N/T Extremities: No Edema Neurology: alert, oriented, follow commands Assessment Assessment 1. Acute respiratory failure secondary to COVID PNA 2. Severe NICM; Echo 11/06 with LVEF 10%. 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 recent device check with normal function. On inotropic support with dobutamine gtt. Follows with [facility] advanced HF clinic. 3. Chronic systolic CHF; appears compensated 4. Mild troponin elevation; peak 0.27. Most probably type II, demand ischemia. CP free. Cath 2014 without obstructive disease. 5. SUKHI on CKD; s/p IVFs. 6. Hypertension; low end but adequate on dobutamine 7. Hyperlipidemia 8. Chronic LBBB Recommendations Continue dobutamine gtt for now Repeat labs Monitor fluid volume status closely. Ongoing lung optimization, treatment of COVID PNA Supportive care [facility] Records 11/06/19 - 2-D + DOPPLER ECHOCARDIOGRAM Interpretation Summary Severely dilated, spherical LV, EF 10% Borderline abnormal RV systolic function, normal chamber size Device leads in right-sided chambers Moderately enlarged LA Moderate, central jet of MR Moderate pulmonary hypertension Compared to 07/2018 the appearance is very similar JOSEPH INIGUEZ MD 01/17/21 1857: CARDIO Progress Notes Assessment Assessment Patient seen and examined. Agree with MANAGER DELIVERY's assessment and plan Continue current treatment for covid PNA per IM Slight trop elevation prob demand ischemia Will give one dose of IV lasix and replace K Continue dobutamine gtt ARIN KUMAR APRN Jan 17, 2021 08:24 JOSEPH INIGUEZ MD Jan 17, 2021 18:57
[2021-01-17] MEDS: DULoxetine HCL 30 MG CAPSULE.DR PO SCH (08:44)
[2021-01-17] MEDS: METOPROLOL SUCC 24HR ER 25 MG TAB.ER.24H. PO SCH (08:44)
[2021-01-17] MEDS: FUROSEMIDE 40 MG TABLET PO SCH (08:45)
[2021-01-17] MEDS: DEXAMETHASONE SOD PHOS 4 MG/ML VIAL. IVP SCH (08:45)
[2021-01-17 09:44] LABS: CALCIUM 7.8 mg/dL (8.5-10.1); CREATININE 1.4 mg/dL (0.6-1.0); GFR 38.1; MAGNESIUM 2.2 mg/dL (1.8-2.4); POTASSIUM 3.3 mmol/L (3.5-5.1)
[2021-01-17] MEDS ORDERED: FUROSEMIDE 40 MG/4 ML VIAL IVP ONE (14:00)
[2021-01-17] MEDS ORDERED: POTASSIUM CHLORIDE 20 MEQ TABLET.ER. PO ONE (14:00)
[2021-01-17] MEDS: AZITHROMYCIN 250 MG TABLET. PO SCH (16:57)
[2021-01-17] MEDS: QUEtiapine 50 MG TABLET. PO SCH (20:05)
[2021-01-17] MEDS: ACETAMINOPHEN 325 MG TABLET PO PRN (20:06)
[2021-01-17] MEDS: ENOXAPARIN 40 MG/0.4 ML SYRINGE. SQ SCH (20:06)
[2021-01-17] MEDS: REMDESIVIR 100mg in NORMAL SALINE 250ML X 4 DAYS IV SCH (20:07)
[2021-01-18] VITALS (31 sets, daily range): BP systolic 84–118; BP diastolic 51–67
--- NOTE | 2021-01-18 01:01 | EKG ---
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
--- NOTE | 2021-01-18 06:20 | PN ---
DATE: 01/17/2021 SUBJECTIVE: The patient is resting, slightly propped up in bed, in no apparent distress. She continued to have some cough, but denied any chills, rigors or fever. Denied any chest pain or continued to have some shortness of breath on exertion. PHYSICAL EXAMINATION: GENERAL: When I examined her, there was no pallor, jaundice, cyanosis or thyromegaly. No jugular venous distention. No limb edema. VITAL SIGNS: Her heart rate was 89, blood pressure is 111/66, temperature was 96.9, respiratory rate was 18 and oxygen saturation was 92% on 2 liters of oxygen. HEAD, EYES, EARS, NOSE, AND THROAT: Normocephalic, atraumatic. NECK: Supple. HEART: Showed normal first and second heart sounds, no gallop or murmur. CHEST: Showed central trachea, equal bilateral expansion, air entry, vesicular breath sounds. No crepitation or rhonchi anteriorly. She has bilateral basal crepitation posteriorly. I could not appreciate any rhonchi. ABDOMEN: Slightly distended, soft, nontender. NEUROLOGIC: She was grossly intact. Her intake was 1300, no output was recorded. LABORATORY DATA: As of yesterday showed a white cell count of 6600, hemoglobin 13.9, hematocrit 41, MCV 94 and platelet count of 134,000 with normal manual differential. Her chemistry showed a serum sodium of 137, potassium 3.3, chloride 102, bicarbonate 23, anion gap of 12, BUN 35, creatinine 1.4. Estimated GFR was 38 mL per minute. Her glucose 144, her calcium was 7.8 and magnesium was 2.2. Total bilirubin, AST, ALT, alkaline phosphatase were normal. Total protein 7.1, albumin was 2.8. ASSESSMENT: 1. Acute respiratory failure secondary to COVID-19 pneumonia. 2. Severe nonischemic cardiomyopathy with an ejection fraction on 11/14 with left ventricular ejection fraction of 10%, status post ____ ROLI recent device check with normal function and currently on inotropic support in the form of dobutamine drip. 3. Chronic systolic congestive heart failure that appears to be compensated. 4. Mild troponin elevation at 0.27, most likely due to demand ischemia. The patient is chest pain free. Her catheterization in 2014 showed no evidence of obstructive coronary artery disease. 5. Acute on chronic kidney disease, status post intravenous fluid. 6. Hypertension. 7. Hyperlipidemia. 8. Chronic left bundle-branch block. PLAN: To continue with dobutamine drip now. She did receive one dose of Lasix this morning. Meanwhile, we will continue with remdesivir, continue with dexamethasone, continue with azithromycin and ceftriaxone, continue with Lovenox. TAMEKA/ROBERTO/CARMENCITA DR: Tonie TID: [id number]
[2021-01-18 06:32] LABS: HEMATOCRIT 37.9 % (36.0-47.0); HEMOGLOBIN 12.5 g/dL (12.0-15.5); RED BLOOD COUNT 4.06 x10^6/uL (3.50-5.40); RED CELL DISTRIBUTION WIDTH 13.5 % (11.5-14.5); WHITE BLOOD COUNT 11.7 x10^3/uL (4.0-11.0)
[2021-01-18 06:51] LABS: ALBUMIN 2.4 g/dL (3.4-5.0); ALBUMIN/GLOBULIN RATIO 0.6 (1.0-1.7); CALCIUM 7.9 mg/dL (8.5-10.1); CREATININE 1.1 mg/dL (0.6-1.0); GFR 50.3; POTASSIUM 3.7 mmol/L (3.5-5.1); TOTAL BILIRUBIN 0.2 mg/dL (0.2-1.0); TOTAL PROTEIN 6.4 g/dL (6.4-8.2)
--- NOTE | 2021-01-18 08:28 | PDOC ---
ARIN KUMAR PLAY READER 01/18/21 0828: CARDIO Progress Notes Date & Time Date of Service DATE: 01/18/21 TIME: 08:26 Time of Evaluation 08:26 Subjective Notes Not more SOA Vitals Vitals Vital Signs Date Time Temp Pulse Resp B/P (MAP) Pulse Ox O2 Delivery O2 Flow Rate FiO2 01/18/21 06:20 86 16 102/60 (74) 92 Nasal Cannula 4.0 01/18/21 05:15 96.4 Weight Weight [ ] Input and Output I.O. Intake and Output 01/18/21 07:00 Intake Total 1570 ml Balance 1570 ml Intake Oral 1340 ml IV Total 230 ml # Voids 4 Laboratory Labs Laboratory Tests Test 01/17/21 09:05 01/18/21 05:37 Sodium Level 137 mmol/L (136-145) 141 mmol/L (136-145) Potassium Level 3.3 mmol/L (3.5-5.1) 3.7 mmol/L (3.5-5.1) Chloride Level 102 mmol/L (98-107) 106 mmol/L (98-107) Carbon Dioxide Level 23 mmol/L (21-32) 26 mmol/L (21-32) Anion Gap 12 (6-14) 9 (6-14) Blood Urea Nitrogen 35 mg/dL (7-20) 36 mg/dL (7-20) Creatinine 1.4 mg/dL (0.6-1.0) 1.1 mg/dL (0.6-1.0) Estimated GFR (Cockcroft-Gault) 38.1 50.3 Glucose Level 144 mg/dL (70-99) 102 mg/dL (70-99) Calcium Level 7.8 mg/dL (8.5-10.1) 7.9 mg/dL (8.5-10.1) Magnesium Level 2.2 mg/dL (1.8-2.4) White Blood Count 11.7 x10^3/uL (4.0-11.0) Red Blood Count 4.06 x10^6/uL (3.50-5.40) Hemoglobin 12.5 g/dL (12.0-15.5) Hematocrit 37.9 % (36.0-47.0) Mean Corpuscular Volume 93 fL (79-100) Mean Corpuscular Hemoglobin 31 pg (25-35) Mean Corpuscular Hemoglobin Concent 33 g/dL (31-37) Red Cell Distribution Width 13.5 % (11.5-14.5) Platelet Count 180 x10^3/uL (140-400) BUN/Creatinine Ratio 33 (6-20) Total Bilirubin 0.2 mg/dL (0.2-1.0) Aspartate Amino Transf (AST/SGOT) 41 U/L (15-37) Alanine Aminotransferase (ALT/SGPT) 19 U/L (14-59) Alkaline Phosphatase 45 U/L (46-116) Total Protein 6.4 g/dL (6.4-8.2) Albumin 2.4 g/dL (3.4-5.0) Albumin/Globulin Ratio 0.6 (1.0-1.7) Microbiology Micro Microbiology 01/15/21 Urine Culture - Final, Complete Physical Exams HEENT: Neck Supple W Full Motion Chest: Symmetric Lungs: Other (on NC) Heart: RRR (v-paced underlying SR ) Abdomen: Soft N/T Extremities: No Edema Neurology: alert, oriented, follow commands Assessment Assessment 1. Acute respiratory failure secondary to COVID PNA 2. Severe NICM; Echo 11/06 with LVEF 10%. 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 recent device check with normal function. On inotropic support with dobutamine gtt. Follows with [facility] advanced HF clinic. 3. Chronic systolic CHF; s/p IV Lasix. appears compensated 4. Mild troponin elevation; peak 0.27. Most probably type II, demand ischemia. CP free. Cath 2014 without obstructive disease. 5. SUKHI on CKD; improved 6. Hypertension; low end but adequate on dobutamine 7. Hyperlipidemia 8. Chronic LBBB Recommendations Continue dobutamine gtt for now Monitor fluid volume status closely. Ongoing lung optimization, treatment of COVID PNA Supportive care NORAH PADILLA MD 01/18/21 1746: CARDIO Progress Notes Plan Plan Pt. seen and examined. Agree with above KNITTING MACHINE FIXER note. Supportive care. ARIN KUMAR APRN Jan 18, 2021 08:28 NORAH PADILLA MD Jan 18, 2021 17:46
[2021-01-18] MEDS: DULoxetine HCL 30 MG CAPSULE.DR PO SCH (08:33)
[2021-01-18] MEDS: FUROSEMIDE 40 MG TABLET PO SCH (08:34)
[2021-01-18] MEDS: DEXAMETHASONE SOD PHOS 4 MG/ML VIAL. IVP SCH (08:34)
[2021-01-18] MEDS: METOPROLOL SUCC 24HR ER 25 MG TAB.ER.24H. PO SCH (08:35)
[2021-01-18] MEDS: AZITHROMYCIN 250 MG TABLET. PO SCH (17:22)
[2021-01-18] MEDS: ENOXAPARIN 40 MG/0.4 ML SYRINGE. SQ SCH (17:23)
[2021-01-18] MEDS: LACTOBACILLUS RHAMNOSUS GG 1 CAPSULE. PO SCH (20:22)
[2021-01-18] MEDS: QUEtiapine 50 MG TABLET. PO SCH (20:22)
[2021-01-18] MEDS: REMDESIVIR 100mg in NORMAL SALINE 250ML X 4 DAYS IV SCH (20:22)
[2021-01-18] MEDS: ACETAMINOPHEN 325 MG TABLET PO PRN (20:22)
--- NOTE | 2021-01-18 22:55 | PN ---
DATE: 01/18/2021 SUBJECTIVE: The patient is doing better. She is not dyspneic at rest. We have got her oxygen requirement down and we are going to try to see how she does on room air. OBJECTIVE FINDINGS: VITAL SIGNS: Blood pressure today is 112/66, pulse 92 and regular. She is afebrile. Oxygen saturation 94% on 3 liters by nasal cannula. HEENT: Head is without trauma. Pupils are reactive. Sclerae nonicteric. Oropharynx clear. NECK: Supple. No bruits identified. LUNGS: Good breath sounds. I do not appreciate any rales or rhonchi. CARDIOVASCULAR: Showed distant heart tones. No gallops. ABDOMEN: Soft. EXTREMITIES: Without edema. NEUROLOGIC: Focally intact. SKIN: Warm and dry. LABORATORY DATA: Noted. ASSESSMENT: 1. A 60-year-old female with acute respiratory failure due to COVID-19 pneumonia. 2. Severe nonischemic cardiomyopathy, ejection fraction estimated at 10-15%. 3. Chronic systolic heart failure, compensated. 4. Mild elevation of troponin due to demand ischemia. 5. Acute on chronic kidney disease. 6. Hypertension. PLAN: 1. We will wean down her oxygen demands. 2. We will wean down her dobutamine. 3. Continue remdesivir as ordered. 4. Discharge planning. She may not need to wait until Saturday. She is doing very well on room air with adequate saturations. She may have a chance to go home tomorrow. KHAI SCHULTZ: Darryl TID: [id number]
[2021-01-19] VITALS (11 sets, daily range): BP systolic 87–111; BP diastolic 50–74
--- NOTE | 2021-01-19 08:21 | PDOC ---
ARIN KUMAR SALES DRIVER 01/19/21 0821: CARDIO Progress Notes Date & Time Date of Service DATE: 01/19/21 TIME: 08:20 Time of Evaluation 08:20 Subjective Notes + cough. No shortness of breath or chest pain. Wanting to ho home Vitals Vitals Vital Signs Date Time Temp Pulse Resp B/P (MAP) Pulse Ox O2 Delivery O2 Flow Rate FiO2 01/19/21 06:40 87 20 105/71 (82) 94 Nasal Cannula 3.0 01/19/21 05:40 96.8 Weight Weight [ ] Input and Output I.O. Intake and Output 01/19/21 07:00 Intake Total 2065 ml Balance 2065 ml Intake Oral 1805 ml IV Total 230 ml Blood Product IV Normal Saline Flush 30 ml # Voids 2 Laboratory Labs Laboratory Tests Test 01/17/21 09:05 01/18/21 05:37 Sodium Level 137 mmol/L (136-145) 141 mmol/L (136-145) Potassium Level 3.3 mmol/L (3.5-5.1) 3.7 mmol/L (3.5-5.1) Chloride Level 102 mmol/L (98-107) 106 mmol/L (98-107) Carbon Dioxide Level 23 mmol/L (21-32) 26 mmol/L (21-32) Anion Gap 12 (6-14) 9 (6-14) Blood Urea Nitrogen 35 mg/dL (7-20) 36 mg/dL (7-20) Creatinine 1.4 mg/dL (0.6-1.0) 1.1 mg/dL (0.6-1.0) Estimated GFR (Cockcroft-Gault) 38.1 50.3 Glucose Level 144 mg/dL (70-99) 102 mg/dL (70-99) Calcium Level 7.8 mg/dL (8.5-10.1) 7.9 mg/dL (8.5-10.1) Magnesium Level 2.2 mg/dL (1.8-2.4) White Blood Count 11.7 x10^3/uL (4.0-11.0) Red Blood Count 4.06 x10^6/uL (3.50-5.40) Hemoglobin 12.5 g/dL (12.0-15.5) Hematocrit 37.9 % (36.0-47.0) Mean Corpuscular Volume 93 fL (79-100) Mean Corpuscular Hemoglobin 31 pg (25-35) Mean Corpuscular Hemoglobin Concent 33 g/dL (31-37) Red Cell Distribution Width 13.5 % (11.5-14.5) Platelet Count 180 x10^3/uL (140-400) BUN/Creatinine Ratio 33 (6-20) Total Bilirubin 0.2 mg/dL (0.2-1.0) Aspartate Amino Transf (AST/SGOT) 41 U/L (15-37) Alanine Aminotransferase (ALT/SGPT) 19 U/L (14-59) Alkaline Phosphatase 45 U/L (46-116) Total Protein 6.4 g/dL (6.4-8.2) Albumin 2.4 g/dL (3.4-5.0) Albumin/Globulin Ratio 0.6 (1.0-1.7) Microbiology Micro Microbiology 01/15/21 Urine Culture - Final, Complete Physical Exams HEENT: Neck Supple W Full Motion Chest: Symmetric Lungs: Other (on NC) Heart: RRR (v-paced underlying SR ) Abdomen: Soft N/T Extremities: No Edema Neurology: alert, oriented, follow commands Assessment Assessment 1. Acute respiratory failure secondary to COVID PNA 2. Severe NICM; Echo 11/06 with LVEF 10%. 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 recent device check with normal function. Follows with [facility] advanced HF clinic. Not on Entresto as insurance would not cover per review of records 3. Chronic systolic CHF; s/p IV Lasix. appears compensated 4. Mild troponin elevation; peak 0.27. Most probably type II, demand ischemia. CP free. Cath 2014 without obstructive disease. 5. SUKHI on CKD; improved 6. Hypertension; Off dobutamine gtt, but remains low end 7. Hyperlipidemia 8. Chronic LBBB Recommendations HF optimization with Toprol. Lasix Will hold off on addition of ACEi/ARB as BP remains low end. Reassess on an outpatient basis Home O2 will need to be arranged; discussed with patient Follow up with primary director of promotions, Dr. Yun upon discharge NORAH PADILLA MD 01/19/21 [id number]: CARDIO Progress Notes Plan Plan Pt. seen and examined. Agree with above REGULATORY COORDINATOR note. Needs O2 therapy now due to covid. Continue low dose diuretics and Toprol XL as tolerated Jaron-inh held. Will set up home health care. Will need f/u with cardiology. Notified Dr. Yun. ARIN KUMAR APRN Jan 19, 2021 08:21 NORAH PADILLA MD Jan 19, 2021 17:09
[2021-01-19] MEDS: DULoxetine HCL 30 MG CAPSULE.DR PO SCH (09:00)
[2021-01-19] MEDS: LACTOBACILLUS RHAMNOSUS GG 1 CAPSULE. PO SCH (11:07)
[2021-01-19] MEDS: DEXAMETHASONE SOD PHOS 4 MG/ML VIAL. IVP SCH (11:07)
[2021-01-19] MEDS: METOPROLOL SUCC 24HR ER 25 MG TAB.ER.24H. PO SCH (11:07)
[2021-01-19] MEDS: FUROSEMIDE 40 MG TABLET PO SCH (11:07)
--- NOTE | 2021-01-19 13:26 | DS ---
DATE OF DISCHARGE: 01/19/2021 ATTENDING PHYSICIAN: Dr. Ho, Dr. Olvera. FINAL DISCHARGE DIAGNOSES: 1. Acute respiratory failure secondary to COVID-19 pneumonia. 2. Hypoxemia, improved. 3. Severe nonischemic cardiomyopathy, ejection fraction estimated at 15%. 4. Chronic systolic congestive heart failure, compensated. 5. Mild elevation of troponin due to stress demand ischemia. 6. Acute on chronic kidney disease. 7. Hypertension. 8. Hyperlipidemia. 9. Chronic left bundle-branch block. HISTORY AND PHYSICAL: The patient is a 60-year-old female with underlying heart due to severe nonischemic cardiomyopathy. She also has COVID pneumonia with respiratory failure. She was admitted for further treatment and evaluation. PHYSICAL EXAMINATION: Please see the dictated note. PERTINENT LABORATORY AND X-RAY STUDIES: Admission hemoglobin 13.9 g/dL, white count was 6300. Chemistry panel: Creatinine is 1.3, repeated was down to 1.1 mg/dL. Potassium was 3.7 mEq. BUN 36. Liver panel unremarkable. Blood sugar 102, fasting. Chest x-ray on admission showed hazy infiltrate at the bases, permanent pacemaker and cardiomegaly. COURSE IN THE HOSPITAL: The patient was admitted, started on supplemental oxygen. She did receive Decadron, remdesivir, Lovenox and ceftriaxone. Cardiology service saw her and recommended a short course of dobutamine infusion for 2 days. She tolerated that well. Her heart failure was well compensated. By the fifth hospital day, she was doing well. At rest, her room air saturation was about 90%; with exertion, she needed 2-3 liters. Therefore, home oxygen was obtained for the patient to go home. She wanted to go home and was stable. I asked her about any offering of Entresto. She said the limitation was cost. Therefore, she is discharged home with the following meds: She will continue her Seroquel 50 mg at bedtime, metoprolol 25 mg daily, Lasix 40 mg daily and Cymbalta 90 mg daily. Her prognosis is guarded. She will follow up with her PCP as well as her arboreal scientist at the scheduled time. The patient was then discharged from our hospital in stable condition with explicit drug and followup care. Total discharge time spent was 38 minutes. JOANNE/SINGH DR: JOANNE/clara TID: [id number] CC: MARCI Brunson
[2021-01-19] MEDS: AZITHROMYCIN 250 MG TABLET. PO SCH (15:52)
== END 2021-01-19 17:15 | disposition home or self-care (01) | DRG 177 ==
LOC: ER 14:10 → ICU 01-16 12:43
PROVIDERS: ADMIT Internal Medicine; ATTEND Internal Medicine
PROC: XW033E5 Introduction of Remdesivir Anti-infective into Peripheral Vein, Percutaneous Approach, New Technology Group 5 (ICD-10-PCS; principal; 2021-01-16)
DX: U07.1 COVID-19 (principal); J96.01 Acute respiratory failure with hypoxia; I21.4 Non-ST elevation (NSTEMI) myocardial infarction; J12.82 Pneumonia due to coronavirus disease 2019; I50.42 Chronic combined systolic (congestive) and diastolic (congestive) heart failure; E87.1 Hypo-osmolality and hyponatremia; I13.0 Hypertensive heart and chronic kidney disease with heart failure and stage 1 through stage 4 chronic kidney disease, or unspecified chronic kidney disease; I42.8 Other cardiomyopathies; N17.9 Acute kidney failure, unspecified; E78.5 Hyperlipidemia, unspecified; G47.00 Insomnia, unspecified; I44.7 Left bundle-branch block, unspecified; N18.9 Chronic kidney disease, unspecified; Z79.899 Other long term (current) drug therapy; Z82.49 Family history of ischemic heart disease and other diseases of the circulatory system; Z87.891 Personal history of nicotine dependence; F32.9 Major depressive disorder, single episode, unspecified; R79.89 Other specified abnormal findings of blood chemistry; Z90.49 Acquired absence of other specified parts of digestive tract
CPT/HCPCS: 36415; 71045; 80048; 80053; 81001; 83735; 83880; 84484; 85025; 85027; 87086; 87426; 93005; 96361; 96365; 96366; 96367; 96375; J0456; J0696; J1100; J1250; J1650; J2405; J7040; J7050; 99285-25; J7030